=== PATIENT | female | born 1955 | race Caucasian/White ===

== ENCOUNTER → 2017-07-09 | Outpatient (CLI) | payer BC, OTHER ==
[~2017-07-09] MED LIST: ASPI-496 PO; ATOR10TA PO; CALCIUM PO; ESOM20CA PO; MAGNESIUM PO; METF100010 PO; METO25TA35 PO; MULT-516 PO; OMEG1CAP6 PO; TURM1POW2 PO; VITAMIN D3 PO
[2017-07-09 12:25] LABS: HEMATOCRIT 47.2 % (34.6-47.8); HEMOGLOBIN 15.7 g/dL (11.7-16.4); WHITE BLOOD COUNT 4.7 x10^3/uL (3.4-10)
[2017-07-09 12:34] LABS: BLOOD UREA NITROGEN 20 mg/dL (7-18)
[2017-07-09 12:37] LABS: ASPARTATE AMINO TRANSFERASE 17 U/L (15-37)
== END | disposition home or self-care (01) ==
LOC: STAR 11:16
PROVIDERS: ATTEND Obstetrics & Gynecology Gynecologic Oncology
DX: Z01.818 Encounter for other preprocedural examination (principal); Z90.710 Acquired absence of both cervix and uterus
CPT/HCPCS: 36415; 71020; 80053; 85025; 85610; 85730; 86304; 93005

== ENCOUNTER 2017-07-16 05:35 | Day surgery (SDC) | payer BC ==
[2017-07-09 12:00] VITALS: BP 131/84
[~2017-07-16] VITALS: Ht 180.3 cm; Wt 96.6 kg
[2017-07-16] MEDS ORDERED: LACTATED RINGERS 1,000 ML IV SCH (06:05)
[2017-07-16] MEDS ORDERED: LIDOCAINE 1%, 2ML ONE (06:19)
[2017-07-16] MEDS ORDERED: LIDOCAINE 1%, 2ML SQ PRN (06:30)
[2017-07-16] MEDS ORDERED: INDOCYANINE GREEN 25 MG VIAL ONE (07:00)
[2017-07-16] MEDS ORDERED: EPINEPHRINE 1 MG/ML, 1ML ONE (07:10)
[2017-07-16] MEDS ORDERED: HEPARIN 1,000 UNITS/ML, 10ML ONE (07:10)
[2017-07-16] MEDS ORDERED: BUPIVACAINE/PF 0.25% ONE (07:11)
[2017-07-16] MEDS ORDERED: MIDAZOLAM 1 MG/ML, 2ML ONE (07:16)
[2017-07-16] MEDS ORDERED: FENTANYL PF 100 MCG/2ML ONE ×3 (07:16→11:27)
[2017-07-16] MEDS ORDERED: KETOROLAC 30 MG/1 ML ONE (07:45)
[2017-07-16] MEDS ORDERED: NEOSTIGMINE 1 MG/ML, 10ML ONE (07:45)
[2017-07-16] MEDS ORDERED: PROPOFOL 10 MG/ML, 20ML ONE (07:45)
[2017-07-16] MEDS ORDERED: GLYCOPYRROLATE 0.2MG/1ML ONE (07:45)
[2017-07-16] MEDS ORDERED: SUCCINYLCHOLINE 20 MG/ML, 10ML ONE (07:45)
[2017-07-16] MEDS ORDERED: EPHEDRINE 50 MG/ML, 1ML ONE (07:45)
[2017-07-16] MEDS ORDERED: CEFAZOLIN 1,000 MG ONE (07:45)
[2017-07-16] MEDS ORDERED: ROCURONIUM 10 MG/ML ONE (07:45)
[2017-07-16] MEDS ORDERED: ACETAMINOPHEN 325 MG TABLET PO PRN (08:30)
[2017-07-16] MEDS ORDERED: OXYcodone 5 MG/5 ML ORAL.SOL UDC PO PRN (08:30)
[2017-07-16] MEDS ORDERED: ONDANSETRON 2MG/ML, 2ML IVPush PRN (08:30)
[2017-07-16] MEDS ORDERED: hydrALAzine 20 MG/ML, 1ML IV PRN (08:30)
[2017-07-16] MEDS ORDERED: METOCLOPRAMIDE 5 MG/ML, 2ML IV PRN (08:30)
[2017-07-16] MEDS ORDERED: HYDROmorphone 1 MG/ML, 1ML IV PRN (08:30)
[2017-07-16] MEDS ORDERED: LABETALOL 5MG/ML, 20ML IV PRN (08:30)
[2017-07-16] MEDS ORDERED: BUPIVACAINE/PF 0.25% INFIL ONE (08:46)
[2017-07-16] MEDS ORDERED: EPINEPHRINE 1 MG/ML, 1ML INFIL ONE (08:47)
[2017-07-16] MEDS ORDERED: INDOCYANINE GREEN 25 MG VIAL INJ ONE (08:49)
[2017-07-16] MEDS: FENTANYL PF 100 MCG/2ML IV PRN ×2 (11:30→11:51)
[2017-07-16] MEDS ORDERED: OXYcodone 5 MG/5 ML ORAL.SOL UDC ONE (11:44)
== END 2017-07-16 15:10 ==
LOC: OUT 05:35
PROVIDERS: ATTEND Specialist
DX: C54.1 Malignant neoplasm of endometrium (principal); K21.9 Gastro-esophageal reflux disease without esophagitis
CPT/HCPCS: 36415; 38500; 58571; 74000; 82962; 86850; 86900; 86923; 88112; 88305; 88307; 88309; 88331; 88333; J0171; J1644; J2250; J3010; J3490; J7120; S2900; J0690; J1885; J2704; J2710; J0330

== ENCOUNTER → 2017-09-03 | Outpatient (CLI) | payer BC | END | disposition home or self-care (01) | LOC: ROC 09:57 | PROVIDERS: ATTEND Radiology Radiation Oncology | DX: C54.1 Malignant neoplasm of endometrium (principal); I10 Essential (primary) hypertension; E78.5 Hyperlipidemia, unspecified; Z79.82 Long term (current) use of aspirin; Z85.3 Personal history of malignant neoplasm of breast | CPT/HCPCS: 99214; G0463 ==

== ENCOUNTER → 2017-09-13 | Outpatient (CLI) | payer BC | END | disposition home or self-care (01) | LOC: ROC 07:34 | PROVIDERS: ATTEND Radiology Radiation Oncology | DX: C54.1 Malignant neoplasm of endometrium (principal) | CPT/HCPCS: 99212; G0463 ==